=== PATIENT | female | born 1985 | race Caucasian/White ===

== ENCOUNTER 2017-01-31 18:25 | Emergency (ER) | payer OTHER ==
--- NOTE | 2017-01-31 18:28 | PDOC ---
Rapid Medical Evaluation Time Seen by Provider: 01/31/17 18:27 Medical Evaluation: Allergies Allergy/AdvReac Type Severity Reaction Status Date / Time No Known Allergies Allergy Verified 03/08/16 15:31 01/31/17 18:28 I have performed a brief in-person evaluation of this patient. The patient presents with a chief complaint of: vomiting and bodyaches Pertinent physical exam findings: no distress, has iud. last period 2 mos ago I have ordered the following: urine , flu The patient will proceed to the ED for further evaluation. 01/31/17 18:36 Discharge Disposition - Diagnosis Vomiting Qualifiers: Vomiting type: unspecified Vomiting Intractability: unspecified Nausea presence : unspecified Qualified Code(s): R11.10 - Vomiting, unspecified - Referrals - Patient Instructions - Post Discharge Activity
[2017-01-31 18:31] VITALS: BP 109/72; PULSE 82; TEMP 99; BMI 24.9
--- NOTE | 2017-01-31 19:38 | PDOC ---
History of Present Illness - General Chief Complaint: Nausea/Vomiting Stated Complaint: NAUSEA/VOMITING Time Seen by Provider: 01/31/17 18:27 History Source: Patient Exam Limitations: No Limitations - History of Present Illness Initial Comments: 01/31/17 19:58 01/31/17 20:12 My chief complaint: Vomiting and body aches History of present illness: Patient is a 31-year-old female with no significant medical history here today complaining of nausea with vomiting multiple times since yesterday with body aches especially her legs when she is walking. Patient reports that her son was sick with similar symptoms prior to her. Patient denies any sore throat nasal congestion, or diarrhea or abdominal pain presently. She did not have influenza vaccine. Denies fever. Patient took Advil earlier today. Timing/Duration: intermittent (for 2 days ) Associated Symptoms: reports: other Past History - Past Medical History Allergies/Adverse Reactions: Allergies Allergy/AdvReac Type Severity Reaction Status Date / Time No Known Allergies Allergy Verified 01/31/17 18:31 Home Medications: Ambulatory Orders Ondansetron HCl [Zofran] 4 mg PO Q8H PRN #3 tablet 01/31/17 Cardiac Disorders: Yes (heart murmur?) COPD: No - Surgical History Abdominal Surgery: No - Reproductive History (#): 3 (tab x 1) Para: 2 Dysfunctional Uterine Bleeding: Yes - Suicide/Smoking/Psychosocial Hx Smoking Status: Yes Smoking History: Never smoked Have you smoked in the past 12 months: No Number of Cigarettes Smoked Daily: 0 Hx Alcohol Use: No Drug/Substance Use Hx: No Substance Use Type: None Review of Systems - Review of Systems Able to Perform ROS?: Yes Constitutional: No: Symptoms Reported HEENTM: No: Symptoms Reported Respiratory: No: Symptoms reported Cardiac (ROS): No: Symptoms Reported ABD/GI: Yes: Vomiting (multiple times sinc yesterday ) : No: Symptoms Reported Musculoskeletal: No: Symptoms Reported Integumentary: No: Symptoms Reported Neurological: No: Symptoms reported *Physical Exam - Vital Signs Last Vital Signs Temp Pulse Resp BP Pulse Ox 99 F 82 18 109/72 99 01/31/17 18:29 01/31/17 18:29 01/31/17 18:29 01/31/17 18:29 01/31/17 18:29 - Physical Exam General Appearance: Yes: Appropriately Dressed HEENT: positive: Normal ENT Inspection Neck: negative: Lymphadenopathy (R), Lymphadenopathy (L) Respiratory/Chest: positive: Lungs Clear, Normal Breath Sounds. negative: Chest Tender, Respiratory Distress Cardiovascular: positive: Regular Rhythm, Regular Rate, S1, S2 Gastrointestinal/Abdominal: positive: Normal Bowel Sounds, Soft. negative: Tender, Organomegaly, Distended, Guarding, Rebound, Hepatomegaly, Spleenomegaly Integumentary: positive: Normal Color Neurologic: positive: Alert, Normal Response, Responsive ED Treatment Course - ADDITIONAL ORDERS Additional order review: Laboratory Results 01/31/17 18:30 Urine HCG, Qual Negative Medical Decision Making - Medical Decision Making 01/31/17 20:13 Patient is a 31-year-old female with no significant medical history here today complaining of nausea with vomiting multiple times since yesterday with body aches especially her legs when she is walking. Patient reports that her son was sick with similar symptoms prior to her. Patient denies any sore throat nasal congestion, or diarrhea or abdominal pain presently. She did not have influenza vaccine. Denies fever. Patient took Advil earlier today. R/O influenza A or B rapid nausea, vomiting bodyaches PLAN urine hcg negative influenza A or B rapid negative Zofran 4 mg sl now than every 8 hrs prn vomiting # 3 TABS ACETAMINOPHEN 1000 MG PO NOW 01/31/17 20:51 PT ABLE TO DRINK WITHOUT VOMITING FEELS BETTER 01/31/17 20:52 *DC/Admit/Observation/Transfer Diagnosis at time of Disposition: Viral syndrome Vomiting Qualifiers: Vomiting type: unspecified Vomiting Intractability: unspecified Nausea presence : unspecified Qualified Code(s): R11.10 - Vomiting, unspecified - Discharge Dispostion Disposition: HOME Condition at time of disposition: Stable - Referrals Referrals: South Mayer MD [Primary Care Provider] - - Patient Instructions Additional Instructions: FLUIDS AND FOOD TOLERATED FOLLOW UP WITH PRIMARY CARE PROVIDER WITHIN NEXT FEW DAYS TAKE ACETAMINOPHEN NEEDED DIRECTED BY [employer] PATIENT VOICED UNDERSTANDING OF DISCHARGE INSTRUCTIONS AND ALL QUESTIONS WERE ANSWERED - Post Discharge Activity Forms/Work/School Notes: Back to Work
[2017-01-31] MEDS ORDERED: ONDANSETRON 4 MG TABLET PO ONE (20:06)
[2017-01-31] MEDS ORDERED: ONDANSETRON *ODT* 4 MG TABLET ONE (20:14)
[2017-01-31] MEDS ORDERED: ACETAMINOPHEN 500 MG TABLET (FP) PO ONE (20:27)
[2017-01-31] MEDS ORDERED: ACETAMINOPHEN 500 MG TABLET (FP) ONE (20:28)
== END 2017-01-31 21:10 | disposition home or self-care (01) ==
LOC: JERFT 18:25 → JER 18:25 → JERFT 21:10
DX: B34.9 Viral infection, unspecified (principal)
CPT/HCPCS: 84703; 87804; 99281-25

== ENCOUNTER 2017-04-24 21:52 | Emergency (ER) | payer OTHER ==
[2017-04-24 22:05] VITALS: BP 117/78; PULSE 60; TEMP 97.9; BMI 24.7
--- NOTE | 2017-04-25 00:03 | PDOC ---
History of Present Illness - General Chief Complaint: Pain Stated Complaint: FALL/INJURY Time Seen by Provider: 04/24/17 23:38 History Source: Patient - History of Present Illness Initial Comments: 04/24/17 23:59 32 year old female s/p fall after twisting left ankle yesterday c/o pain to left ankle with swelling and left sided neck pain. unsure if she strained the neck while falling. Past History - Past Medical History Allergies/Adverse Reactions: Allergies Allergy/AdvReac Type Severity Reaction Status Date / Time Penicillins Allergy Verified 04/25/17 00:34 Home Medications: Ambulatory Orders NK [No Known Home Medication] 04/25/17 Cardiac Disorders: Yes (heart murmur?) COPD: No - Surgical History Abdominal Surgery: No - Reproductive History (#): 3 (tab x 1) Para: 2 Dysfunctional Uterine Bleeding: Yes - Suicide/Smoking/Psychosocial Hx Smoking Status: Yes Smoking History: Never smoked Have you smoked in the past 12 months: No Number of Cigarettes Smoked Daily: 0 Information on smoking cessation initiated: No Hx Alcohol Use: No Drug/Substance Use Hx: No Substance Use Type: None Review of Systems - Review of Systems Able to Perform ROS?: Yes Is the patient limited [place] proficient: No Constitutional: No: Symptoms Reported, See HPI, Chills, Diaphoresis, Fever, Loss of Appetite, Malaise, Night Sweats, Weakness, Weight Stable, Unintentional Wgt. Loss, Unexplained wgt Loss, Other Musculoskeletal: Yes: Other (left side neck pain) *Physical Exam - Vital Signs Last Vital Signs Temp Pulse Resp BP Pulse Ox 97.9 F 60 18 117/78 99 04/24/17 22:02 04/24/17 22:02 04/24/17 22:02 04/24/17 22:02 04/24/17 22:02 - Physical Exam General Appearance: Yes: Appropriately Dressed Musculoskeletal: positive: Muscle Spasm (left side of neck). negative: Vertebral Tenderness Extremity: positive: Other (left ankle swelling with limited rom. no deformity) Progress Note - Progress Note Progress Note: A: left ankle sprain P: xray: no fracture official read pending. pain control ortho referral prn *DC/Admit/Observation/Transfer Diagnosis at time of Disposition: Neck muscle spasm Left ankle sprain Qualifiers: Encounter type: initial encounter Involved ligament of ankle: unspecified ligament Qualified Code(s): S93.402A - Sprain of unspecified ligament of left ankle, initial encounter - Discharge Dispostion Disposition: HOME - Referrals Referrals: South Mayer MD [Primary Care Provider] - Jimmy Harding MD [Staff Physician] - - Patient Instructions Printed Discharge Instructions: Ankle Sprain Additional Instructions: rest elevate and splint ankle. follow up with an orthopedic as soon as possible. take ibuprofen every 6 hours as needed for pain. - Post Discharge Activity Forms/Work/School Notes: Back to Work
[2017-04-25] MEDS ORDERED: KETOROLAC TROMETHAMINE 30 MG/1 ML VIAL IM ONE (00:16)
[2017-04-25] MEDS ORDERED: KETOROLAC TROMETHAMINE 30 MG/1 ML VIAL ONE (00:42)
== END 2017-04-25 01:15 | disposition home or self-care (01) ==
LOC: JER 21:52
PROC: 3E0233Z Introduction of Anti-inflammatory into Muscle, Percutaneous Approach (ICD-10-PCS; principal; 2017-04-24)
DX: S93.402A Sprain of unspecified ligament of left ankle, initial encounter (principal); M62.838 Other muscle spasm; W10.8XXA Fall (on) (from) other stairs and steps, initial encounter; Y93.89 Activity, other specified; Y92.89 Other specified places as the place of occurrence of the external cause; Y99.8 Other external cause status
CPT/HCPCS: 73610-TC-LT-FY; 73630-TC-LT; 84703; 96372; 99282-25

== ENCOUNTER 2022-02-02 21:51 | Emergency (ER) | payer OTHER ==
[2022-02-02 21:58] VITALS: BP 108/62; PULSE 63; RESP 18; TEMP 98.1; BMI 22.3
== END 2022-02-03 00:25 | disposition home or self-care (01) ==
LOC: JER 21:51
DX: N73.9 Female pelvic inflammatory disease, unspecified (principal)
CPT/HCPCS: 99281-25

== ENCOUNTER 2022-08-29 21:42 | Emergency (ER) | payer OTHER ==
[2022-08-29 21:55] VITALS: RESP 16; BMI 23.1
[2022-08-29] MEDS ORDERED: ACETAMINOPHEN 1000 MG/100 ML BAG IVPB ONE (22:30)
[2022-08-29] MEDS ORDERED: SODIUM CHLORIDE 0.9% 500 ML INFUS.BAG IV ONE ×2 (22:30→23:57)
[2022-08-29 22:39] LABS: BASO % 1.1 % (0-2.0); EOS % 4.6 % (0-4.5); HEMATOCRIT 33.7 % (32.4-45.2); HEMOGLOBIN 11.5 GM/dL (10.7-15.3); LYMPH % 41.7 % (8-40); MCH 29.8 pg (25.7-33.7); MCHC 34.1 g/dl (32.0-36.0); MEAN CELL VOLUME 87.4 fl (80-96); MEAN PLT VOLUME 7.1 fl (7.5-11.1); MONO % 8.3 % (3.8-10.2); NEUT % 44.3 % (42.8-82.8); PLATELET COUNT 231 10^3/uL (134-434); RBC 3.86 M/mm3 (3.60-5.2); RDW 13.8 % (11.6-15.6); WHITE BLOOD COUNT 4.6 K/mm3 (4.0-10.0)
[2022-08-29] MEDS ORDERED: ACETAMINOPHEN INJECTION 100 ML IVPB ONE (22:44)
[2022-08-29 22:57] LABS: URINE APPEARANCE CLEAR; URINE BILIRUBIN NEGATIVE (NEGATIVE); URINE COLOR YELLOW; URINE GLUCOSE (UA) NEGATIVE (NEGATIVE); URINE KETONE NEGATIVE (NEGATIVE); URINE LEUK ESTERASE NEGATIVE (NEGATIVE); URINE NITRITE NEGATIVE (NEGATIVE); URINE PROTEIN NEGATIVE (NEGATIVE); URINE UROBILINOGEN 0.2 mg/dL (0.2-1.0)
[2022-08-29 22:58] LABS: POTASSIUM 4.4 mmol/L (3.5-5.1)
[2022-08-29 23:00] LABS: CALCIUM 8.8 mg/dL (8.5-10.1)
[2022-08-29 23:01] LABS: ALBUMIN 3.6 g/dl (3.4-5.0); BLOOD UREA NITROGEN 23.9 mg/dL (7-18)
[2022-08-29 23:04] LABS: CREATININE 1.6 mg/dL (0.55-1.3)
[2022-08-29 23:05] LABS: TOT PROT 6.7 g/dl (6.4-8.2)
[2022-08-29 23:06] LABS: BILIRUBIN,TOTAL 0.2 mg/dL (0.2-1)
[2022-08-29] MEDS ORDERED: KETOROLAC TROMETHAMINE 15 MG/ML VIAL IVPUSH ONE (23:57)
[2022-08-29] MEDS ORDERED: FAMOTIDINE 20 MG/50 ML IVPB 20 MG/50 ML MG IVPB ONE (23:57)
[2022-08-30] MEDS ORDERED: FAMOTIDINE 20 MG/50 ML IVPB 20 MG/50 ML MG IVPB ONE (00:18)
[2022-08-30] MEDS ORDERED: KETOROLAC TROMETHAMINE 15 MG/ML VIAL ONE (00:18)
[2022-08-30] MEDS ORDERED: LACTULOSE 20 GM/30 ML UDC (FOR ORAL USE ONLY) PO ONE (01:09)
[2022-08-30] MEDS ORDERED: POLYETHYLENE GLYCOL (HEALTHYLAX) 3350 17 GM PACKET PO SCH (01:15)
[2022-08-30] MEDS ORDERED: POLYETHYLENE GLYCOL (HEALTHYLAX) 3350 17 GM PACKET ONE (01:15)
[2022-08-30] MEDS ORDERED: LACTULOSE 20 GM/30 ML UDC (FOR ORAL USE ONLY) ONE (01:15)
[2022-08-30 01:20] VITALS: BP 100/64; PULSE 49; TEMP 97.7
[2022-08-30 01:55] LABS: POTASSIUM 3.9 mmol/L (3.5-5.1)
[2022-08-30 01:56] LABS: CALCIUM 7.7 mg/dL (8.5-10.1)
[2022-08-30 01:57] LABS: BLOOD UREA NITROGEN 23.6 mg/dL (7-18)
[2022-08-30 02:00] LABS: CREATININE 1.1 mg/dL (0.55-1.3)
== END 2022-08-30 03:09 | disposition home or self-care (01) ==
LOC: JER 21:42
PROC: 3E033NZ Introduction of Analgesics, Hypnotics, Sedatives into Peripheral Vein, Percutaneous Approach (ICD-10-PCS; 2022-08-29)
PROC: 3E033GC Introduction of Other Therapeutic Substance into Peripheral Vein, Percutaneous Approach (ICD-10-PCS; principal; 2022-08-30)
PROC: 3E0333Z Introduction of Anti-inflammatory into Peripheral Vein, Percutaneous Approach (ICD-10-PCS; 2022-08-30)
DX: R10.12 Left upper quadrant pain (principal)
CPT/HCPCS: 36415; 71046-TC-FY; 74176-TC; 80048; 80053; 81003; 84703; 85025; 86850; 86900; 86901; 87086; 99285-25

== ENCOUNTER 2023-03-12 19:08 | Emergency (ER) | payer OTHER ==
[2023-03-12 19:13] VITALS: BP 137/77; PULSE 65; RESP 17; TEMP 98.1; BMI 24.0
== END 2023-03-12 20:28 | disposition home or self-care (01) ==
LOC: JERFT 19:08
DX: M79.645 Pain in left finger(s) (principal); V89.2XXA Person injured in unspecified motor-vehicle accident, traffic, initial encounter
CPT/HCPCS: 73130-TC-LT-FY; 99283-25

== ENCOUNTER 2023-05-18 11:04 | Emergency (ER) | payer OTHER ==
[2023-05-18 11:27] VITALS: BP 136/62; PULSE 60; RESP 17; TEMP 98.5; BMI 23.6
[2023-05-18 13:45] LABS: BASO % 1.1 % (0-2.0); EOS % 4.1 % (0-4.5); HEMATOCRIT 35.9 % (32.4-45.2); HEMOGLOBIN 12.2 GM/dL (10.7-15.3); LYMPH % 45.6 % (8-40); MCH 29.1 pg (25.7-33.7); MEAN CELL VOLUME 85.8 fl (80-96); MEAN PLT VOLUME 6.8 fl (7.5-11.1); MONO % 6.4 % (3.8-10.2); NEUT % 42.8 % (42.8-82.8); PLATELET COUNT 290 10^3/uL (134-434); RBC 4.19 M/mm3 (3.60-5.2); RDW 14.5 % (11.6-15.6)
[2023-05-18 14:08] LABS: POTASSIUM 4.1 mmol/L (3.5-5.1)
[2023-05-18 14:09] LABS: EPI CELLS 4 /uL (0-25.1); HYALINE CASTS 0 /uL (0-3.1); URINE APPEARANCE CLEAR; URINE BACTERIA 54 /uL (0-1359); URINE BILIRUBIN NEGATIVE (NEGATIVE); URINE COLOR YELLOW; URINE GLUCOSE (UA) NEGATIVE (NEGATIVE); URINE KETONE NEGATIVE (NEGATIVE); URINE LEUK ESTERASE NEGATIVE (NEGATIVE); URINE NITRITE NEGATIVE (NEGATIVE); URINE PROTEIN NEGATIVE (NEGATIVE); URINE RBC 50 /uL (0-23.9); URINE UROBILINOGEN 0.2 mg/dL (0.2-1.0); URINE WBC 5 /uL (0-25.8)
[2023-05-18 14:10] LABS: CALCIUM 9.1 mg/dL (8.5-10.1)
[2023-05-18 14:11] LABS: ALBUMIN 3.8 g/dl (3.4-5.0); BLOOD UREA NITROGEN 20.2 mg/dL (7-18)
[2023-05-18 14:14] LABS: CREATININE 0.7 mg/dL (0.55-1.3)
[2023-05-18 14:15] LABS: BILIRUBIN,TOTAL 0.3 mg/dL (0.2-1); TOT PROT 7.4 g/dl (6.4-8.2)
== END 2023-05-18 17:27 | disposition home or self-care (01) ==
LOC: JER 11:04
DX: R56.9 Unspecified convulsions (principal); R51.9 Headache, unspecified
CPT/HCPCS: 36415; 70450-TC; 80053; 81003; 84703; 85025; 99284-25

== ENCOUNTER 2024-09-08 13:11 | Emergency (ER) | payer OTHER ==
[2024-09-08 13:18] VITALS: BP 112/69; PULSE 69; RESP 18; TEMP 98.7; BMI 22.6
[2024-09-10 20:00] LABS: HCV DIAGNOSTIC IN-HOUSE W/RFLX NON-REACTIVE (NONREACTIVE)
[2024-09-10 20:14] LABS: HIV INTERPRETATION NEGATIVE (NEGATIVE)
== END 2024-09-08 15:16 | disposition home or self-care (01) ==
LOC: JERFT 13:11
DX: M79.671 Pain in right foot (principal); M79.89 Other specified soft tissue disorders; W17.2XXA Fall into hole, initial encounter
CPT/HCPCS: 36415; 73630-TC-RT-FY; 86803; 87389; 99284-25

== ENCOUNTER 2024-11-11 18:24 | Emergency (ER) | payer OTHER ==
[2024-11-11 18:33] VITALS: BP 133/67; PULSE 60; RESP 18; TEMP 98.5; BMI 24.0
[2024-11-11] MEDS ORDERED: guaiFENesin/D-METHORPHAN HB 10 ML UNIT-DOSE CUPS ONE (19:44)
[2024-11-11] MEDS: guaiFENesin/D-METHORPHAN HB 10 ML UNIT-DOSE CUPS PO ONE (19:45)
== END 2024-11-11 19:52 | disposition home or self-care (01) ==
LOC: JER 18:24
DX: R05.9 Cough, unspecified (principal); R09.81 Nasal congestion; B34.9 Viral infection, unspecified; R00.1 Bradycardia, unspecified
CPT/HCPCS: 71046-TC-FY; 87637-QW; 93005; 93010; 99285-25